=== PATIENT | female | born 1995 | race Caucasian/White ===

== ENCOUNTER 2019-03-20 00:20 | Emergency (ER) | payer OTHER ==
[~2019-03-20] VITALS: Ht 154.9 cm; Wt 65.8 kg
[2019-03-20 00:26] VITALS: BP 121/60
--- NOTE | 2019-03-20 00:26 | NUR ---
TO BED # 12 AMBULATORY
--- NOTE | 2019-03-20 00:30 | NUR ---
ASSUMED CARE OF PT AT THIS TIME. C/O BI-LATERAL INNER THIGH RASH X 2 MONTHS. AAOX4 WITH EVEN AND STEADY GAIT; PATIENT STATES PAIN OF 4/10 AT THIS TIME; VSS; PATIENT POSITIONED FOR COMFORT; HOB ELEVATED; BEDRAILS UP X2; BED DOWN. ER MD MADE AWARE OF PT STATUS. WILL CONTINUE TO MONITOR.
[2019-03-20] MEDS ORDERED: KETOCONAZOLE 2% 15 GM TUBE TP STA (02:23)
[2019-03-20 02:30] VITALS: BP 118/64
--- NOTE | 2019-03-20 02:30 | NUR ---
Patient discharged with v/s stable. Written and verbal after care instructions given and explained. Patient alert, oriented and verbalized understanding of instructions. Ambulatory with steady gait. All questions addressed prior to discharge. ID band removed. Patient advised to follow up with PMD. Rx of KETOCONAZOLE TOPICAL CREAM given. Patient educated on indication of medication including possible reaction and side effects. Opportunity to ask questions provided and answered.
[2019-03-20] MEDS ORDERED: KETOCONAZOLE 2% 15 GM TUBE TP SCH (13:00)
== END 2019-03-20 02:30 | disposition home or self-care (01) ==
LOC: MED 00:20
DX: L30.9 Dermatitis, unspecified (principal)
CPT/HCPCS: 99282

== ENCOUNTER 2021-04-24 00:10 | Emergency (ER) | payer OTHER ==
[~2021-04-24] VITALS: Ht 152.4 cm; Wt 67.6 kg
[2021-04-24 00:17] VITALS: BP 135/72
== END 2021-04-24 02:15 | disposition left against medical advice (07) ==
LOC: MED 00:10
DX: N89.8 Other specified noninflammatory disorders of vagina (principal)
CPT/HCPCS: 81002; 81025